=== PATIENT | female | born 1950 | race Caucasian/White ===

== ENCOUNTER 2017-01-08 05:04 | Day surgery (SDC) | payer MEDICARE, OTHER ==
[~2017-01-08 05:04] MED LIST: APRES10B PO; ASAB PO; ASABAYER PO; CARD120 PO; CARDCD300 PO; COZ50 PO; CRESTOR40 MG PO; DIABETA5 PO; FERROUS SULF325 M1 PO; FOLIC PO; GLUCOPHAGE1000 MG PO; IRON325 MG PO; JANUVIA100 MG PO; KLOR-CON M2020 MEQ PO; L40 PO; LANTUS SC; MAG6464 MG PO; MOBIC15 MG PO; NEUR300 PO; NEXIUM40 PO; NORCO1 TA1 PO; VITAMIN B-121000 MC1 SL; Z100 PO
== END 2017-01-08 09:22 | disposition home or self-care (01) ==
LOC: SDC 05:04
PROVIDERS: Orthopaedic Surgery
PROC: 3E0R3BZ Introduction of Anesthetic Agent into Spinal Canal, Percutaneous Approach (ICD-10-PCS; 2017-01-08)
PROC: 3E0R33Z Introduction of Anti-inflammatory into Spinal Canal, Percutaneous Approach (ICD-10-PCS; principal; 2017-01-08 08:00)
DX: M54.16 Radiculopathy, lumbar region (principal); E11.40 Type 2 diabetes mellitus with diabetic neuropathy, unspecified; I10 Essential (primary) hypertension; E78.00 Pure hypercholesterolemia, unspecified; Z95.1 Presence of aortocoronary bypass graft; Z88.0 Allergy status to penicillin; Z96.1 Presence of intraocular lens; I25.10 Atherosclerotic heart disease of native coronary artery without angina pectoris; I25.2 Old myocardial infarction; Z87.01 Personal history of pneumonia (recurrent); G47.30 Sleep apnea, unspecified; M19.90 Unspecified osteoarthritis, unspecified site; M79.7 Fibromyalgia; K21.9 Gastro-esophageal reflux disease without esophagitis; Z90.710 Acquired absence of both cervix and uterus; F41.9 Anxiety disorder, unspecified; F32.9 Major depressive disorder, single episode, unspecified; Z98.890 Other specified postprocedural states; Z79.82 Long term (current) use of aspirin; Z79.4 Long term (current) use of insulin; Z79.1 Long term (current) use of non-steroidal anti-inflammatories (NSAID); Z79.84 Long term (current) use of oral hypoglycemic drugs; Z79.899 Other long term (current) drug therapy
CPT/HCPCS: 82962; J1040; J2250; J3010; Q9967

== ENCOUNTER 2017-01-31 05:23 | Day surgery (SDC) | payer MEDICARE | END 2017-01-31 08:00 | disposition home or self-care (01) | LOC: SDC 05:23 | PROVIDERS: Orthopaedic Surgery | PROC: 3E0S3BZ Introduction of Anesthetic Agent into Epidural Space, Percutaneous Approach (ICD-10-PCS; 2017-01-31) | PROC: 3E0S33Z Introduction of Anti-inflammatory into Epidural Space, Percutaneous Approach (ICD-10-PCS; principal; 2017-01-31 07:00) | DX: M54.16 Radiculopathy, lumbar region (principal); I10 Essential (primary) hypertension; E78.00 Pure hypercholesterolemia, unspecified; E11.40 Type 2 diabetes mellitus with diabetic neuropathy, unspecified; Z95.1 Presence of aortocoronary bypass graft; I25.10 Atherosclerotic heart disease of native coronary artery without angina pectoris; I25.2 Old myocardial infarction; M19.90 Unspecified osteoarthritis, unspecified site; K21.9 Gastro-esophageal reflux disease without esophagitis; F41.9 Anxiety disorder, unspecified; F32.9 Major depressive disorder, single episode, unspecified; Z90.49 Acquired absence of other specified parts of digestive tract; Z90.710 Acquired absence of both cervix and uterus; Z98.41 Cataract extraction status, right eye; Z88.0 Allergy status to penicillin; Z98.42 Cataract extraction status, left eye; Z98.890 Other specified postprocedural states | CPT/HCPCS: 82962; J1040; J2250; J3010; Q9967 ==